=== PATIENT | male | born 1970 | race Caucasian/White ===

== ENCOUNTER 2019-07-14 06:40 | Observation (INO) | payer OTHER ==
[~2019-07-14] VITALS: Ht 177.8 cm; Wt 92.0 kg
[~2019-07-14 06:40] MED LIST: ACET325 PO; ALBU90OI INH; AMOCLA875 PO; ASPI325; ASPI325 PO; AZIT250 PO; Aspirin EC325 MG PO; CEFU500 PO; CEPH500 PO; CHEMO; CHOL10002 PO; CYCL10 PO; Cipro250 MG PO; Coumadin5 MG PO; DOC250 PO; ENOX100I SQ; FENT25TP TOP; FENT50TP TOP; GENT.3OPSO RIGHTEYE; HYDACE5 PO; HYDCHL25 PO; HYDMOR2 PO; HYDR1TAB94 PO; IBUP600 PO; IBUP800; IBUP800 PO; LISINOPRIL; METO10 PO; NAPR500 PO; NAPR550 PO; NICO14TP TOP; Norco 5-325 Ta1 EACH PO; ONDA8ODT MM; OXYACE5T PO; OXYC10ER PO; OXYC5 PO; PRED20 PO; PROACE100 PO; PROM25; PROM25 PO; Prednisone10 MG PO; RANI150 PO; RXONDA4ODT MM; RXOXYACE PO; RXPROACE PO; RXPROM25S PR; SENN187 PO; TRAM50 PO; VICODIN 5-3001 EACH PO; WARF5 PO; XARELTO10 MG PO; Zithromax250 MG PO; [UNRECOGNIZED DRUG - OTHER]
[2019-07-14] MEDS ORDERED: LISI5 PO (07:19)
[2019-07-14 08:41] LABS: BASOPHILS ABSOLUTE AUTO 0.07 K/mm3 (0.00-0.23); BASOPHILS PERCENT AUTO 1 % (0-2); EOSINOPHILS ABSOLUTE AUTO 0.27 K/mm3 (0.00-0.68); EOSINOPHILS PERCENT AUTO 3 % (0-6); Hematocrit 48.6 % (37.0-53.0); Hemoglobin 15.9 g/dL (13.5-17.5); IMMATURE GRAN ABSOLUTE AUTO 0.02 K/mm3 (0.00-0.10); IMMATURE GRAN PERCENT AUTO 0 % (0-1); LYMPHOCYTES ABSOLUTE AUTO 2.21 K/mm3 (0.84-5.20); LYMPHOCYTES PERCENT AUTO 28 % (21-46); MONOCYTES ABSOLUTE AUTO 0.78 K/mm3 (0.16-1.47); MONOCYTES PERCENT AUTO 10 % (4-13); Mean Corpuscular HGB 31.4 pg (26.0-34.0); Mean Corpuscular HGB Conc 32.7 g/dL (31.5-36.5); Mean Corpuscular Volume 96 fL (80-100); Mean Platelet Volume 9.6 fL (9.1-12.4); NEUTROPHILS ABSOLUTE AUTO 4.61 K/mm3 (1.96-9.15); NEUTROPHILS PERCENT AUTO 58 % (41-73); Platelet Count 130 K/mm3 (150-400); RDW Coefficient Variation 14.7 % (11.7-14.2); Red Blood Cell Count 5.06 M/mm3 (4.30-5.90); White Blood Cell Count 7.96 K/mm3 (4.00-11.30)
[2019-07-14 08:58] LABS: Albumin, Blood 3.2 g/dL (3.4-5.0); Albumin/Globulin Ratio 0.9 (0.8-1.8); Bilirubin, Total 0.4 mg/dL (0.1-1.0); Bun/Creatinine Ratio 13.1 (12.0-20.0); Calcium, Blood 8.6 mg/dL (8.5-10.1); Creatinine, Blood 1.37 mg/dL (0.60-1.20); Globulin, Blood 3.5 g/dL (2.2-4.0); Potassium, Blood 4.4 mmol/L (3.5-5.5); Total Protein, Blood 6.7 g/dL (6.4-8.2)
[2019-07-14 10:06] LABS: International Normalized Ratio 1.03; Prothrombin Time Results 10.9 Sec (9.7-11.5)
--- NOTE | 2019-07-14 16:51 | NUR ---
SHIFT SUMMARY 1040 RECEIVED PT TO RM 359 FROM ER. RECEIVED REPORT FROM KARAN VILLEGAS, PT TO ER WITH C/O SWELLING TO L ARM WHEN HE WOKE UP YESTERDAY. HX OF DVT'S AND PE'S WITH LAST RESULTING IN HEART FAILURE AND PACER PLACEMENT EARLIER THIS YEAR. PT REPORTED NO PCP AND DOES NOT FOLLOW UP HE SHOULD. PT ON LISINOPRIL AND XARELTO, BUT HAS MISSED A FEW DOSES RECENTLY. PT ADMITTED FOR HEPARIN DRIP. A&O, INDEPENDENT IN RM. MEDICATED FOR C/O PAIN TO L ARM X2 TODAY. CALL LT IN REACH. NO FURTHER NEEDS AT THIS TIME.
--- NOTE | 2019-07-15 01:04 | NUR ---
07/14/19 8746 PT WANTING TO GO OUTSIDE TO SMOKE. INFORMED THAT HE CANNOT DUE TO HIM BEING ON A HEPARIN DRIP IV. RN INFORMED PT THAT SHE WILL SPEAK WITH MD ABOUT ANTI-ANXIETY OR SLEEPER ORDER. HE WAS AGREEABLE TO THAT PLAN.
[2019-07-15 08:01] LABS: BASOPHILS ABSOLUTE AUTO 0.07 K/mm3 (0.00-0.23); BASOPHILS PERCENT AUTO 1 % (0-2); EOSINOPHILS ABSOLUTE AUTO 0.35 K/mm3 (0.00-0.68); EOSINOPHILS PERCENT AUTO 6 % (0-6); Hematocrit 49.6 % (37.0-53.0); Hemoglobin 16.2 g/dL (13.5-17.5); IMMATURE GRAN ABSOLUTE AUTO 0.02 K/mm3 (0.00-0.10); IMMATURE GRAN PERCENT AUTO 0 % (0-1); LYMPHOCYTES ABSOLUTE AUTO 2.47 K/mm3 (0.84-5.20); LYMPHOCYTES PERCENT AUTO 45 % (21-46); MONOCYTES ABSOLUTE AUTO 0.49 K/mm3 (0.16-1.47); MONOCYTES PERCENT AUTO 9 % (4-13); Mean Corpuscular HGB 31.4 pg (26.0-34.0); Mean Corpuscular HGB Conc 32.7 g/dL (31.5-36.5); Mean Corpuscular Volume 96 fL (80-100); Mean Platelet Volume 9.9 fL (9.1-12.4); NEUTROPHILS ABSOLUTE AUTO 2.09 K/mm3 (1.96-9.15); NEUTROPHILS PERCENT AUTO 38 % (41-73); Platelet Count 111 K/mm3 (150-400); RDW Standard Deviation 50.4 fL (35.1-46.3); Red Blood Cell Count 5.16 M/mm3 (4.30-5.90); White Blood Cell Count 5.49 K/mm3 (4.00-11.30)
[2019-07-15 08:30] LABS: Alanine Aminotransfer (ALT/SGP 33 U/L (12-78); Albumin, Blood 2.9 g/dL (3.4-5.0); Albumin/Globulin Ratio 0.9 (0.8-1.8); Alk Phos 94 U/L (50-136); Anion Gap 7 mmol/L (6-16); Aspartate Aminotrans (AST/SGOT 26 U/L (12-37); Bilirubin, Total 0.4 mg/dL (0.1-1.0); Blood Urea Nitrogen 19 mg/dL (8-24); Bun/Creatinine Ratio 14.6 (12.0-20.0); CHOL/HDL RATIO 3.9; CO2, Blood 26 mmol/L (21-32); Calcium, Blood 8.4 mg/dL (8.5-10.1); Chloride, Blood 106 mmol/L (98-108); Cholesterol 225 mg/dL (50-200); Globulin, Blood 3.4 g/dL (2.2-4.0); Glomerular Filtration Rate >60 (60-); Glucose, Blood 88 mg/dL (70-99); HDL Cholesterol 58 mg/dL (>39); LDL/HDL RATIO 2.3; Low Density Lipoprotein Chol 134 mg/dL (0-110); Magnesium, Blood 2.1 mg/dL (1.6-2.4); Potassium, Blood 4.5 mmol/L (3.5-5.5); Sodium, Blood 139 mmol/L (136-145); Total Protein, Blood 6.3 g/dL (6.4-8.2); Triglycerides 164 mg/dL (30-160); Very Low Density Lipoprot Chol 32 mg/dL (6-32)
--- NOTE | 2019-07-15 08:55 | NUR ---
PT SLEEPING WAKES TO VERBAL STIMULI MEDS GIVEN SCHED PT ASKED IF HE CAN BE UNHOOKED FROM HEPARIN DRIP FOR A SHOWER STATED NO BUT WE CAN COVER THE THE IV AND HE CAN SHOWER WITH THE IV PT L ARM STILL VERY SWOLLEN NO SOB NO CP ELEV ON PILLOW PT STATED HE WAS ABLE TO SLEEP WELL WITH THE MELATONIN
--- NOTE | 2019-07-15 09:34 | NUR ---
heparin dose to stay at same rate per pharmacy pt resting
--- NOTE | 2019-07-15 12:15 | NUR ---
dr guzman by to see pt po xarelto given 20 mg pharmacy stated in 1 hr we can stop the heparin pt stated his normal dose is 5 mg to prevent dvt pt stated when i unhook him he will have his shower
[2019-07-15 13:04] LABS: Free Thyroxine 0.88 ng/dL (0.70-1.60)
[2019-07-15 13:06] LABS: Triiodothyronine, Free 2.89 pg/mL (2.18-3.98)
--- NOTE | 2019-07-15 14:00 | NUR ---
pt getting into shower heparin gtt turned off at 1300 sl
--- NOTE | 2019-07-15 17:45 | NUR ---
PT EATING DINNER
--- NOTE | 2019-07-16 04:01 | NUR ---
07/16/19 0400 VITALS STABLE. MEDICATED FOR PAIN IN LEFT ARM EARLIER PER MAR. WATCHING TV AND STATES HE HAS BEEN SLEEPING "ON AND OFF". LEFT ARM UP ON PILLOW AND ENCOURAGED HIM TO GENTLY MOVE HANDS, FINGERS AND ARMS SPORADICALLY TO MAINTAIN STRENGTH AND ROM. PT AGREEABLE.
[2019-07-16] MEDS ORDERED: XARELTO15 MG PO (09:30)
[2019-07-16] MEDS ORDERED: NICO21TP TOP (09:31)
[2019-07-16] MEDS ORDERED: Lipitor20 MG PO (09:31)
[2019-07-16] MEDS ORDERED: TRAM50 PO (09:32)
--- NOTE | 2019-07-16 11:12 | NUR ---
SUMMARY/DISCHARGE PT BEING DISCHARGED TO HOME, PT'S PCP IS IN [place], PT REPORTS HE WILL MAKE A FOLLOW UP WHEN HE GETS HOME, PT VERBALIZD UNDERSTANDING REGARDING DISCHARGE MEDICATIONS, DOSE CHANGES, AND FOLLOW UP, PT DECLINED A WHEELCHAIR AND IS CURRENTLY WAITING FOR HIS RIDE
--- NOTE | 2019-07-16 13:28 | NUR ---
PT DISCHARGED, DECLINED A WHEELCHAIR, ABLE TO AMBULATE SAFELY TO THE ELEVATOR
== END 2019-07-16 13:15 | disposition home or self-care (01) ==
LOC: ER 06:40 → MEDS 06:41 → ER 09:59 → MEDS 10:40 → ER 07-15 06:41 → MEDS 07-15 06:41 → ENPENDDIS 07-16 09:38 → MEDS 07-16 13:15
PROVIDERS: Emergency Medicine; Family Medicine; ADMIT Internal Medicine
DX: I82.B12 Acute embolism and thrombosis of left subclavian vein (principal); I82.612 Acute embolism and thrombosis of superficial veins of left upper extremity; I82.A12 Acute embolism and thrombosis of left axillary vein; C85.90 Non-Hodgkin lymphoma, unspecified, unspecified site; I12.9 Hypertensive chronic kidney disease with stage 1 through stage 4 chronic kidney disease, or unspecified chronic kidney disease; N18.3 Chronic kidney disease, stage 3 (moderate); E78.5 Hyperlipidemia, unspecified; F17.210 Nicotine dependence, cigarettes, uncomplicated; Z86.711 Personal history of pulmonary embolism; Z86.718 Personal history of other venous thrombosis and embolism; Z79.01 Long term (current) use of anticoagulants; Z79.899 Other long term (current) drug therapy; Z90.49 Acquired absence of other specified parts of digestive tract; Z95.0 Presence of cardiac pacemaker
CPT/HCPCS: 36415; 71260; 80053; 80061; 83735; 84439; 84443; 84481; 85025; 85610; 85651; 85730; 93971; 96365; 96366; 96376; 99284-25; A9270; G0378; J1644; Q9967

== ENCOUNTER 2020-05-14 04:44 | Emergency (ER) | payer OTHER ==
[~2020-05-14] VITALS: Ht 177.8 cm; Wt 95.2 kg
[~2020-05-14 04:44] MED LIST changes: +LISI5 PO; +Lipitor20 MG PO; +NICO21TP TOP; +XARELTO15 MG PO
[2020-05-14] MEDS ORDERED: XARELTO20 MG PO ×2 (06:25→09:56)
[2020-05-14 06:55] LABS: BASOPHILS PERCENT AUTO 1 % (0-2); EOSINOPHILS ABSOLUTE AUTO 0.32 K/mm3 (0.00-0.68); EOSINOPHILS PERCENT AUTO 3 % (0-6); Hemoglobin 18.2 g/dL (13.5-17.5); IMMATURE GRAN ABSOLUTE AUTO 0.06 K/mm3 (0.00-0.10); IMMATURE GRAN PERCENT AUTO 1 % (0-1); LYMPHOCYTES ABSOLUTE AUTO 2.39 K/mm3 (0.84-5.20); LYMPHOCYTES PERCENT AUTO 19 % (21-46); MONOCYTES PERCENT AUTO 8 % (4-13); Mean Corpuscular HGB Conc 32.7 g/dL (31.5-36.5); Mean Corpuscular Volume 95 fL (80-100); Mean Platelet Volume 10.3 fL (9.1-12.4); NEUTROPHILS ABSOLUTE AUTO 8.82 K/mm3 (1.96-9.15); NEUTROPHILS PERCENT AUTO 70 % (41-73); Platelet Count 126 K/mm3 (150-400); RDW Coefficient Variation 13.9 % (11.7-14.2); RDW Standard Deviation 48.8 fL (35.1-46.3); Red Blood Cell Count 5.88 M/mm3 (4.30-5.90); White Blood Cell Count 12.69 K/mm3 (4.00-11.30)
[2020-05-14 06:57] LABS: Hematocrit 55.7 % (37.0-53.0)
[2020-05-14 07:00] LABS: Calcium, Ionized (POC) 1.28 mmol/L (1.10-1.46); Chloride (POC) 102 mmol/L (98-108); Creatinine (POC) 1.5 mg/dL (0.8-1.3); Glucose (ISTAT POC) 95 mg/dL (70-99); Hemoglobin (POC) 19.4 g/dL (13.5-17.5); Potassium (POC) 4.9 mmol/L (3.5-5.5); Sodium (POC) 140 mmol/L (135-148); Total CO2 (POC) 27 mmol/L (21-32)
[2020-05-14 07:16] LABS: Albumin, Blood 3.3 g/dL (3.4-5.0); Albumin/Globulin Ratio 0.9 (0.8-1.8); Bilirubin, Total 0.3 mg/dL (0.1-1.0); Bun/Creatinine Ratio 17.4 (12.0-20.0); Calcium, Blood 9.2 mg/dL (8.5-10.1); Creatinine, Blood 1.38 mg/dL (0.60-1.20); Globulin, Blood 3.8 g/dL (2.2-4.0); Potassium, Blood 5.1 mmol/L (3.5-5.5); Total Protein, Blood 7.1 g/dL (6.4-8.2); Troponin I 0.027 ng/mL (0.000-0.040)
[2020-05-14 07:56] LABS: International Normalized Ratio 0.96; Prothrombin Time Results 10.3 Sec (9.7-11.5)
[2020-05-14] MEDS ORDERED: HYDR1TAB94 PO (10:00)
== END 2020-05-14 10:40 | disposition home or self-care (01) ==
LOC: ER 04:44
PROVIDERS: Emergency Medicine
DX: I82.402 Acute embolism and thrombosis of unspecified deep veins of left lower extremity (principal); I26.99 Other pulmonary embolism without acute cor pulmonale; D68.59 Other primary thrombophilia; N18.9 Chronic kidney disease, unspecified; F17.210 Nicotine dependence, cigarettes, uncomplicated; Z79.01 Long term (current) use of anticoagulants; Z79.899 Other long term (current) drug therapy; Z87.442 Personal history of urinary calculi; Z95.0 Presence of cardiac pacemaker
CPT/HCPCS: 36415; 71260; 80047; 80053; 84484; 85014; 85025; 85610; 85730; 93005; 93010; 93971; 96361; 96365; 96366; 96375; 99284-25; J1170; J1644; J2405; J7030; Q9967

== ENCOUNTER 2020-05-16 22:13 | Emergency (ER) | payer OTHER ==
[~2020-05-16] VITALS: Ht 177.8 cm; Wt 95.2 kg
[~2020-05-16 22:13] MED LIST changes: +XARELTO20 MG PO
[2020-05-17] MEDS ORDERED: Norco 5-325 Ta1 EACH PO (01:51)
== END 2020-05-17 02:05 | disposition home or self-care (01) ==
LOC: ER 22:13
DX: I82.401 Acute embolism and thrombosis of unspecified deep veins of right lower extremity (principal); I10 Essential (primary) hypertension; F17.210 Nicotine dependence, cigarettes, uncomplicated; Z87.442 Personal history of urinary calculi; Z95.0 Presence of cardiac pacemaker; Z79.01 Long term (current) use of anticoagulants; Z79.899 Other long term (current) drug therapy
CPT/HCPCS: 36415; 96374; 96375; 99283; J2270

== ENCOUNTER 2020-11-02 09:54 | Inpatient (IN) | payer OTHER ==
[~2020-11-02] VITALS: Ht 180.3 cm; Wt 91.5 kg
[2020-11-02 10:21] LABS: BASOPHILS ABSOLUTE AUTO 0.05 K/mm3 (0.00-0.23); BASOPHILS PERCENT AUTO 1 % (0-2); EOSINOPHILS PERCENT AUTO 1 % (0-6); Hematocrit 48.8 % (37.0-53.0); Hemoglobin 16.1 g/dL (13.5-17.5); IMMATURE GRAN ABSOLUTE AUTO 0.03 K/mm3 (0.00-0.10); IMMATURE GRAN PERCENT AUTO 0 % (0-1); LYMPHOCYTES ABSOLUTE AUTO 2.09 K/mm3 (0.84-5.20); LYMPHOCYTES PERCENT AUTO 21 % (21-46); MONOCYTES ABSOLUTE AUTO 1.02 K/mm3 (0.16-1.47); MONOCYTES PERCENT AUTO 10 % (4-13); Mean Corpuscular HGB 30.9 pg (26.0-34.0); Mean Corpuscular Volume 94 fL (80-100); Mean Platelet Volume 10.7 fL (9.1-12.4); NEUTROPHILS ABSOLUTE AUTO 6.53 K/mm3 (1.96-9.15); NEUTROPHILS PERCENT AUTO 67 % (41-73); Platelet Count 151 K/mm3 (150-400); RDW Standard Deviation 47.9 fL (35.1-46.3); Red Blood Cell Count 5.21 M/mm3 (4.30-5.90); White Blood Cell Count 9.82 K/mm3 (4.00-11.30)
[2020-11-02 10:45] LABS: Albumin, Blood 3.3 g/dL (3.4-5.0); Albumin/Globulin Ratio 0.9 (0.8-1.8); Bilirubin, Total 0.9 mg/dL (0.1-1.0); Bun/Creatinine Ratio 18.2 (12.0-20.0); Calcium, Blood 8.7 mg/dL (8.5-10.1); Creatinine, Blood 1.65 mg/dL (0.60-1.20); Globulin, Blood 3.5 g/dL (2.2-4.0); Potassium, Blood 4.7 mmol/L (3.5-5.5); Total Protein, Blood 6.8 g/dL (6.4-8.2)
[2020-11-02 12:03] LABS: U Amphetamine Screen DETECTED; U Barbituate Screen Not Detected; U Benzodiazapine Screen Not Detected; U Buprenorphine Screen Not Detected; U Cannabinoids Screen DETECTED; U Cocaine Screen Not Detected; U Methadone Screen Not Detected; U Methamphetamine Screen DETECTED; U Opiates Screen DETECTED; U Oxycodone Screen Not Detected; U Phencyclidine Screen Not Detected; U Propoxyphene Screen Not Detected
--- NOTE | 2020-11-02 14:52 | NUR ---
PT ADMITTED TO ICU AT 1405 FROM ER FOR ACUTE CHF. PT AWAKE AND ALERT, DENIES C/O PAIN, STATES HE CAME IN FOR SOB BUT THAT IS IMPROVED NOW. LUNGS CLEAR T/O, DIMINISHED TO LLL, SATS >90% ON RA. PT REQUEST SANDWHICH AT LEAST 10 TIMES IN 5MIN PERIOD. PT PLEASANT, COOPERATIVE, RESTLESS, HYPERACTIVE, TWITCHING, WITH PRESSURED SPEECH. APPEARS TO POSSIBLY BE UNDER THE INFLUENCE OF ILLEGAL SUBSTANCE. UA + FOR METH/AMP/OPIATES/CAN. VSS. PT POINTS OUT SWELLING TO RIGHT UPPER INNER THIGHT. AREA SWOLLEN, HARD, RED, AND WARM. DAT DIXONAC OPERATOR NOTIFIED. WARM COMPRESS AND TYLENOL ORDERED. PT HAS HX OF BLOOD CLOTS AND HAS BEEN PLACED ON BLOOD THINNERS. PT GIVEN LUNCH TRAY, ATE 100%.
--- NOTE | 2020-11-02 15:41 | NUR ---
HISTORY COMPLETED; SOMEWHAT DIFFICULT D/T PT BEING UNDER THE INFLUENCE. PT VERY HUNGRY; ADDITIONAL SNACKS GIVEN. GOOD URINE OUTPUT WITH LASIX.
--- NOTE | 2020-11-02 18:08 | NUR ---
DR MURPHY CALLED AND GIVEN UPDATE. TRAMADOL AND NICOTINE PATCH ORDERED.
--- NOTE | 2020-11-02 21:00 | NUR ---
Care Assumed 1900 Pt resting in bed, on phone or watching TV. A/O X 4, able to make needs known. Pleasant, cooperative, and hyperactive when nurse in room but easily falls asleep when left alone. Asked for food frequently, snacked provided. Pt on RA when care assumed and 1 L via NC started due to pts SPO2 decreasing to 87% when sleeping. Lung clear t/o. Warm compress applied to right inner thigh, area is swollen, hard, red, and warm to touch. Pt states having stabbing burning pain (4/10 on/off) that started one week ago. Pt states using rice warm compresses at home to help manage the pain. Also, states having cramping/tightness on/off on right lower chest that started today morning. Pt states pain is worse with stretching and does not radiate. VSS. Paced. Call light within reach. Around 1999 patient friend called asking for her belongins stored in patients vehicle. Discussed with patient and situation resolved with assitance from secruity. Secruity has patients friends belongs and patient made aware of this and told to let his friend know where belongings can be collected.
--- NOTE | 2020-11-03 02:15 | NUR ---
Pain Patient given pain medications per emar for right thigh pain (02/06). Patient states he accidentally scratched the area.
[2020-11-03 03:28] LABS: BASOPHILS ABSOLUTE AUTO 0.05 K/mm3 (0.00-0.23); BASOPHILS PERCENT AUTO 1 % (0-2); EOSINOPHILS ABSOLUTE AUTO 0.25 K/mm3 (0.00-0.68); EOSINOPHILS PERCENT AUTO 3 % (0-6); Hematocrit 49.8 % (37.0-53.0); Hemoglobin 16.7 g/dL (13.5-17.5); IMMATURE GRAN ABSOLUTE AUTO 0.02 K/mm3 (0.00-0.10); IMMATURE GRAN PERCENT AUTO 0 % (0-1); LYMPHOCYTES ABSOLUTE AUTO 2.21 K/mm3 (0.84-5.20); LYMPHOCYTES PERCENT AUTO 29 % (21-46); MONOCYTES ABSOLUTE AUTO 0.85 K/mm3 (0.16-1.47); MONOCYTES PERCENT AUTO 11 % (4-13); Mean Corpuscular HGB 31.1 pg (26.0-34.0); Mean Corpuscular HGB Conc 33.5 g/dL (31.5-36.5); Mean Corpuscular Volume 93 fL (80-100); Mean Platelet Volume 10.8 fL (9.1-12.4); NEUTROPHILS ABSOLUTE AUTO 4.26 K/mm3 (1.96-9.15); NEUTROPHILS PERCENT AUTO 56 % (41-73); Platelet Count 152 K/mm3 (150-400); RDW Standard Deviation 47.5 fL (35.1-46.3); Red Blood Cell Count 5.37 M/mm3 (4.30-5.90); White Blood Cell Count 7.64 K/mm3 (4.00-11.30)
[2020-11-03 03:52] LABS: Albumin, Blood 3.1 g/dL (3.4-5.0); Albumin/Globulin Ratio 0.9 (0.8-1.8); Bilirubin, Total 0.6 mg/dL (0.1-1.0); Bun/Creatinine Ratio 17.5 (12.0-20.0); Calcium, Blood 8.7 mg/dL (8.5-10.1); Creatinine, Blood 1.66 mg/dL (0.60-1.20); Globulin, Blood 3.5 g/dL (2.2-4.0); Potassium, Blood 4.3 mmol/L (3.5-5.5); Total Protein, Blood 6.6 g/dL (6.4-8.2)
--- NOTE | 2020-11-03 05:36 | NUR ---
Shift Summary Pt resting t/o shift. Pain in right thigh has decreased to 1/10. Area continues to be red, hard, and warm to touch. Denies CP. Pt on 4 L via NC, to keep SPO2 > 90%. Oxygen required when pt sleeping. Able to ambulate to bedside toilet without assistance, pt tolerated well. VSS. Continues to be paced. Will report to oncoming shift.
--- NOTE | 2020-11-03 07:51 | NUR ---
PT AWAKE AND ALERT EATING BREAKFAST. PT C/O PAIN 6/10 TO RIGHT UPPER/INNER THIGH. AREA RED, SWOLLEN, HARD, WARM. VEINS ARE DILATED, HARD, AND TENDER IN THE AREA. WILL MEDICATE W ULTRAM. HEATING PAD AT BEDSIDE FOR USE. LUNGS CLEAR, DENIES SOB, SATS 96% ON RA. PT DENIES C/O CHEST PAIN/PRESSURE. PLAN; POSSIBLE CHANGE IN STATUS.
--- NOTE | 2020-11-03 08:11 | NUR ---
DR GARCIA IN TO SEE PT. PT NOW MED STATUS W TELE
--- NOTE | 2020-11-03 14:46 | NUR ---
PT CHECKED ON BECAUSE BED ALARM ALARMING, PT IN BED. WHEN ASKED IF PT DOING OKAY PT STATED "IM HAVING CHEST PAIN". PT C/O VAUGE CHEST DISCOFORT 02/06, MOVES HAND AROUND EPIGASTRIC TO MID LEFT CHEST AREA. PT STATES THE PAIN IS ACHE/PRESSURE/CRAMPING. WHEN ASKED IF IT'S WORSE WITH A DEEP BREATH, PT STATES A LITTLE. WHEN ASKED IF THE PAIN IS SHARP PT STATES A LITTLE. PT DENIES SOB, NAUSEA. VSS STABLE. PT'S COLOR IS PINK, PT IS NOT DIAPHORETIC. EKG COMPLETED; SHOWS PACED RHTHYM W PROLONGED AV CONDUCTION. DR SYED NOTIFIED. STAT TROPONIN ORDERED.
--- NOTE | 2020-11-03 16:21 | NUR ---
PT SLEEPING, APPEARS RESTFUL. TROPONIN WNL AT 0.031
--- NOTE | 2020-11-03 16:29 | NUR ---
PT SOUND ASLEEP; PT AWOKE W LIGHT SHAKE; STARTLED. ULTRAM GIVEN FOR THIGH AND CHEST DISCOMFORT.
--- NOTE | 2020-11-03 18:12 | NUR ---
PT DENIES COMPLAINTS, EATING DINNER AND VISITING WITH FRIEND.
--- NOTE | 2020-11-03 19:30 | NUR ---
ASSUMED CARE OF PT, BEDSIDE REPORT RECEIVED. PT IS RESTING QUIETLY RECLINING IN BED AND DENIES NEEDS AT THIS TIME. STATES THAT HE HAS LIFE CHANGES PLANNED HE WISHES TO BE ABLE TO CONTINUE TO CARE FOR HIS ELDERLY MOTHER. PT IS ENCOURAGED TO MAKE POSITIVE CHANGES.
--- NOTE | 2020-11-04 01:40 | NUR ---
TRANSFER PT ICU TRANSFER THIS SHIFT. REPORT TAKEN FROM BEAM BUILDER TO ASSUME CARE OF PT AT THIS TIME. PT TRANSFERRED TO ROM 309. PT RESTING IN BED, NO FRESH COMPLAINTS. REQUESTS GRAPE JUICE BUT DENIES OTHER NEEDS. BELONGINGS IN PLACE. CALL LIGHT WITHIN REACH.
--- NOTE | 2020-11-04 04:16 | NUR ---
SHIFT SUMMARY PT ICU TRANSFER THIS MORINING AROUND 0120. HE HAS RESTED COMFORTABLY SINCE TRANSFER AND HAS DENIED NEEDS. MOSTLY INDEPENDENT, NEEDING MINIMAL ASSISTANCE. VITALS ARE STABLE. POSSIBLE DC TODAY. BED IN LOWEST POSITION, CALL LIGHT WITHIN REACH.
[2020-11-04 05:31] LABS: Bun/Creatinine Ratio 21.9 (12.0-20.0); Calcium, Blood 8.8 mg/dL (8.5-10.1); Creatinine, Blood 1.46 mg/dL (0.60-1.20); Potassium, Blood 4.3 mmol/L (3.5-5.5)
[2020-11-04] MEDS ORDERED: ASPI81CH PO (10:26)
[2020-11-04] MEDS ORDERED: Lisinopril2.5 MG PO (10:27)
[2020-11-04] MEDS ORDERED: Nicoderm Cq1 EAC1 TOP (10:27)
[2020-11-04] MEDS ORDERED: FURO40 PO (10:27)
[2020-11-04] MEDS ORDERED: METO25ER PO (10:27)
--- NOTE | 2020-11-04 12:15 | NUR ---
DISCHARGE SUMMARY PT AxOx4. COOPERATIVE WITH CARE. PT VERY SLEEPY THIS AM. DISCHARGING TO HOME WITH FAMILY. PT DENIES PAIN. VITALS REVIEWED. DISCHARGE INSTRUCTIONS DISCUSSED WITH PATIENT INCLUDING DC MEDICATIONS, AND FOLLOW UP APPTS- CARDIO CONSULT AND ESTABLISHING CARE WITH NEW PCP. PT VERBALIZES UNDERSTANDING. DENIES ANY FURTHER QUESTIONS AT THIS TIME. PT HAD RIDE WAITING IN PARKING LOT. ESCORTED SAFELY OUT VIA WC BY HAIRPIECE STYLIST.
== END 2020-11-04 12:24 | disposition home or self-care (01) | DRG 291 ==
LOC: ER 09:54 → ICUW 12:42 → ICUE 12:42 → MEDS 11-04 01:11
PROVIDERS: Emergency Medicine; Internal Medicine; Nurse Practitioner Acute Care; ADMIT Internal Medicine
DX: I13.0 Hypertensive heart and chronic kidney disease with heart failure and stage 1 through stage 4 chronic kidney disease, or unspecified chronic kidney disease (principal); I50.23 Acute on chronic systolic (congestive) heart failure; C85.90 Non-Hodgkin lymphoma, unspecified, unspecified site; I42.8 Other cardiomyopathies; N18.30 Chronic kidney disease, stage 3 unspecified; F17.210 Nicotine dependence, cigarettes, uncomplicated; F19.10 Other psychoactive substance abuse, uncomplicated; Z86.718 Personal history of other venous thrombosis and embolism; Z91.14 Patient's other noncompliance with medication regimen
CPT/HCPCS: 36415; 71045; 71260; 80048; 80053; 83735; 83880; 84484; 85025; 93005; 93010; 93306; 96374; 99285-25; A9270; J1940; Q9967

== ENCOUNTER 2020-12-17 13:37 | Emergency (ER) | payer OTHER ==
[~2020-12-17] VITALS: Ht 177.8 cm; Wt 95.2 kg
[~2020-12-17 13:37] MED LIST changes: +ASPI81CH PO; +FURO40 PO; +Lisinopril2.5 MG PO; +METO25ER PO; +Nicoderm Cq1 EAC1 TOP
[2020-12-17] MEDS ORDERED: XARELTO20 MG PO (14:36)
== END 2020-12-17 14:55 | disposition home or self-care (01) ==
LOC: ER 13:37
DX: I82.432 Acute embolism and thrombosis of left popliteal vein (principal); I82.442 Acute embolism and thrombosis of left tibial vein; I11.0 Hypertensive heart disease with heart failure; I50.9 Heart failure, unspecified; F17.210 Nicotine dependence, cigarettes, uncomplicated; Z79.01 Long term (current) use of anticoagulants; Z79.82 Long term (current) use of aspirin; Z79.899 Other long term (current) drug therapy
CPT/HCPCS: 93971; 99283-25; A9270

== ENCOUNTER 2021-11-14 00:27 | Emergency (ER) | payer OTHER ==
[~2021-11-14] VITALS: Ht 177.8 cm; Wt 97.5 kg
== END 2021-11-14 01:09 | disposition home or self-care (01) ==
LOC: ER 00:27
DX: Z48.02 Encounter for removal of sutures (principal); F17.210 Nicotine dependence, cigarettes, uncomplicated; I13.0 Hypertensive heart and chronic kidney disease with heart failure and stage 1 through stage 4 chronic kidney disease, or unspecified chronic kidney disease; N18.9 Chronic kidney disease, unspecified; I50.9 Heart failure, unspecified; Z79.899 Other long term (current) drug therapy
CPT/HCPCS: 99281

== ENCOUNTER → 2022-01-25 | Outpatient (CLI) | payer OTHER ==
[2022-01-25 12:42] LABS: BASOPHILS ABSOLUTE AUTO 0.06 K/mm3 (0.00-0.23); BASOPHILS PERCENT AUTO 1 % (0-2); EOSINOPHILS ABSOLUTE AUTO 0.22 K/mm3 (0.00-0.68); EOSINOPHILS PERCENT AUTO 3 % (0-6); Hematocrit 49.5 % (37.0-53.0); IMMATURE GRAN ABSOLUTE AUTO 0.03 K/mm3 (0.00-0.10); IMMATURE GRAN PERCENT AUTO 0 % (0-1); LYMPHOCYTES ABSOLUTE AUTO 1.79 K/mm3 (0.84-5.20); LYMPHOCYTES PERCENT AUTO 22 % (21-46); MONOCYTES ABSOLUTE AUTO 0.76 K/mm3 (0.16-1.47); MONOCYTES PERCENT AUTO 9 % (4-13); Mean Corpuscular HGB 32.8 pg (26.0-34.0); Mean Corpuscular HGB Conc 34.3 g/dL (31.5-36.5); Mean Corpuscular Volume 95 fL (80-100); Mean Platelet Volume 10.2 fL (9.1-12.4); NEUTROPHILS ABSOLUTE AUTO 5.47 K/mm3 (1.96-9.15); NEUTROPHILS PERCENT AUTO 66 % (41-73); Platelet Count 159 K/mm3 (150-400); RDW Standard Deviation 49.3 fL (35.1-46.3); Red Blood Cell Count 5.19 M/mm3 (4.30-5.90); White Blood Cell Count 8.33 K/mm3 (4.00-11.30)
[2022-01-25 12:48] LABS: Bun/Creatinine Ratio 14.5 (12.0-20.0); Calcium, Blood 8.4 mg/dL (8.5-10.1); Creatinine, Blood 2.07 mg/dL (0.60-1.20); Potassium, Blood 4.9 mmol/L (3.5-5.5)
== END | disposition home or self-care (01) ==
LOC: LAB SHORT 12:38
PROVIDERS: Family Medicine
DX: L03.119 Cellulitis of unspecified part of limb (principal)
CPT/HCPCS: 80048; 85025

== ENCOUNTER → 2022-01-28 | Outpatient (CLI) | payer OTHER ==
[2022-01-28 14:33] LABS: BASOPHILS ABSOLUTE AUTO 0.06 K/mm3 (0.00-0.23); BASOPHILS PERCENT AUTO 1 % (0-2); EOSINOPHILS ABSOLUTE AUTO 0.16 K/mm3 (0.00-0.68); EOSINOPHILS PERCENT AUTO 2 % (0-6); Hemoglobin 17.9 g/dL (13.5-17.5); IMMATURE GRAN ABSOLUTE AUTO 0.03 K/mm3 (0.00-0.10); IMMATURE GRAN PERCENT AUTO 0 % (0-1); LYMPHOCYTES ABSOLUTE AUTO 2.21 K/mm3 (0.84-5.20); LYMPHOCYTES PERCENT AUTO 33 % (21-46); MONOCYTES ABSOLUTE AUTO 0.53 K/mm3 (0.16-1.47); MONOCYTES PERCENT AUTO 8 % (4-13); Mean Corpuscular HGB 31.7 pg (26.0-34.0); Mean Corpuscular HGB Conc 33.8 g/dL (31.5-36.5); Mean Corpuscular Volume 94 fL (80-100); Mean Platelet Volume 10.5 fL (9.1-12.4); NEUTROPHILS ABSOLUTE AUTO 3.69 K/mm3 (1.96-9.15); NEUTROPHILS PERCENT AUTO 55 % (41-73); Platelet Count 178 K/mm3 (150-400); RDW Coefficient Variation 13.9 % (11.7-14.2); RDW Standard Deviation 48.5 fL (35.1-46.3); Red Blood Cell Count 5.64 M/mm3 (4.30-5.90); White Blood Cell Count 6.68 K/mm3 (4.00-11.30)
[2022-01-28 14:43] LABS: Albumin, Blood 3.8 g/dL (3.4-5.0); Albumin/Globulin Ratio 0.9 (0.8-1.8); Bilirubin, Total 0.3 mg/dL (0.1-1.0); Bun/Creatinine Ratio 13.7 (12.0-20.0); Calcium, Blood 9.2 mg/dL (8.5-10.1); Creatinine, Blood 1.82 mg/dL (0.60-1.20); Globulin, Blood 4.1 g/dL (2.2-4.0); Potassium, Blood 4.6 mmol/L (3.5-5.5); Total Protein, Blood 7.9 g/dL (6.4-8.2)
== END | disposition home or self-care (01) ==
LOC: LAB SHORT 14:27 → LAB 14:27
PROVIDERS: Chiropractor
DX: R07.9 Chest pain, unspecified (principal); R60.0 Localized edema
CPT/HCPCS: 80053; 83880; 84484; 85025

== ENCOUNTER 2022-02-17 08:49 | Inpatient (IN) | payer OTHER ==
[~2022-02-17] VITALS: Ht 177.8 cm; Wt 99.0 kg
[2022-02-17 09:23] LABS: BASOPHILS ABSOLUTE AUTO 0.06 K/mm3 (0.00-0.23); BASOPHILS PERCENT AUTO 0 % (0-2); EOSINOPHILS ABSOLUTE AUTO 0.04 K/mm3 (0.00-0.68); EOSINOPHILS PERCENT AUTO 0 % (0-6); Hematocrit 52.5 % (37.0-53.0); Hemoglobin 17.2 g/dL (13.5-17.5); IMMATURE GRAN ABSOLUTE AUTO 0.07 K/mm3 (0.00-0.10); IMMATURE GRAN PERCENT AUTO 1 % (0-1); LYMPHOCYTES ABSOLUTE AUTO 1.48 K/mm3 (0.84-5.20); LYMPHOCYTES PERCENT AUTO 11 % (21-46); MONOCYTES ABSOLUTE AUTO 0.65 K/mm3 (0.16-1.47); MONOCYTES PERCENT AUTO 5 % (4-13); Mean Corpuscular HGB 31.4 pg (26.0-34.0); Mean Corpuscular HGB Conc 32.8 g/dL (31.5-36.5); Mean Corpuscular Volume 96 fL (80-100); Mean Platelet Volume 10.2 fL (9.1-12.4); NEUTROPHILS ABSOLUTE AUTO 11.36 K/mm3 (1.96-9.15); NEUTROPHILS PERCENT AUTO 83 % (41-73); Platelet Count 182 K/mm3 (150-400); RDW Coefficient Variation 14.5 % (11.7-14.2); RDW Standard Deviation 51.2 fL (35.1-46.3); Red Blood Cell Count 5.48 M/mm3 (4.30-5.90); White Blood Cell Count 13.66 K/mm3 (4.00-11.30)
[2022-02-17 09:54] LABS: Albumin, Blood 3.6 g/dL (3.4-5.0); Albumin/Globulin Ratio 0.9 (0.8-1.8); Bilirubin, Total 0.4 mg/dL (0.1-1.0); Bun/Creatinine Ratio 7.3 (12.0-20.0); Calcium, Blood 9.4 mg/dL (8.5-10.1); Creatinine, Blood 4.52 mg/dL (0.60-1.20); Globulin, Blood 3.8 g/dL (2.2-4.0); Potassium, Blood 4.6 mmol/L (3.5-5.5); Total Protein, Blood 7.4 g/dL (6.4-8.2)
[2022-02-17] MEDS ORDERED: HYDR1TAB94 PO (13:26)
[2022-02-17 14:04] LABS: Source, Urine Voided
[2022-02-17 14:12] LABS: Appearance, Urine Clear (Clear); Bilirubin, Urine Neg (Neg); Blood, Urine 3+ (Neg); Color, Urine Yellow (P-Yellow); Glucose Qualitative, Urine Neg (Neg); Ketones, Urine Neg (Neg); Leukocyte Esterase, Urine Neg (Neg); Nitrite, Urine Neg (Neg); Protein, Urine 2+ (Neg); Specific Gravity, Urine 1.025 (1.003-1.022); Urobilinogen, Urine NORM (Normal)
[2022-02-17 14:25] LABS: Bacteria Mod /hpf; Red Blood Cells, Urine 0-2 /hpf (0-2); Squamous Epithelial Cells Rare /hpf (Few)
[2022-02-17 14:26] LABS: Amorphous Light (0-Heavy); Mucus Light (0-Heavy)
[2022-02-17 14:28] LABS: Other Crystals Rare /hpf
[2022-02-17 14:41] LABS: Bun/Creatinine Ratio 9.8 (12.0-20.0); Calcium, Blood 8.7 mg/dL (8.5-10.1); Creatinine, Blood 3.98 mg/dL (0.60-1.20); Potassium, Blood 4.9 mmol/L (3.5-5.5)
[2022-02-17] MEDS ORDERED: PANT20 PO (18:08)
--- NOTE | 2022-02-17 18:51 | NUR ---
PT ARRIVED TO ROOM 305 VIA W/C FROM ED. FEET NOTICED TO BE DUSKY AND PT STATED "MY HEART IS ONLY WORKING AT 20%". HAS BEEN TO RESTROOM SEVERAL TIMES WITH DIARRHEA REPORTED. SPOKE WITH MD AND RECEIVED NEW ORDERS. ATE SUPPER WITH NO PROBLEM. WILL REPORT CONDITION TO ONCOMING SHIFT.
[2022-02-18 04:34] LABS: Adenovirus F 40/41 Not Detected (NOT DETECT); Astrovirus Not Detected (NOT DETECT); Campylobacter Sp Not Detected (NOT DETECT); Cryptosporidium Not Detected (NOT DETECT); Cyclospora Cayetanensis Not Detected (NOT DETECT); E. Coli O157 Not Detected (NOT DETECT); Entamoeba Histolytica Not Detected (NOT DETECT); Enteroaggregative E. coli-EAEC Not Detected (NOT DETECT); Enteropathogenic E. coli-EPEC Detected (NOT DETECT); Enterotoxigenic E. coli-ETEC Not Detected (NOT DETECT); Giardia Lamblia Not Detected (NOT DETECT); Norovirus GI/GII Not Detected (NOT DETECT); Plesiomonas Shigelloides Not Detected (NOT DETECT); Rotavirus A Not Detected (NOT DETECT); Salmonella Sp Not Detected (NOT DETECT); Sapovirus Not Detected (NOT DETECT); Shiga Toxin-prod E. coli-STEC Not Detected (NOT DETECT); Shigella/Enteroin E. coli-EIEC Not Detected (NOT DETECT); Vibrio Cholerae Not Detected (NOT DETECT); Vibrio Sp Not Detected (NOT DETECT); Yersinia Enterocolitica Not Detected (NOT DETECT)
--- NOTE | 2022-02-18 04:36 | NUR ---
A&OX4. V/S WNL. INDEPENDANT. IV TO L) AC; NS INFUSING AT 125 ML/HR ORDERED. REGULAR DIET. GOOD APETITE. DIARRHEA X3. PRN IMMODIUM X2 FOR DIARRHEA. NO N/V. PRN TYLENOLX1 & TRAMADOLX1 GIVEN FOR ABDOMINAL PAIN. PRN BENTYL GIVEN FOR ABDOMINAL CRAMPING. VOIDED W/O DIFFICULTY. ON CONTACT PRECAUTIONS FOR POSSIBLE C-DIFF. GI PANEL COLLECTED AND SENT TO LAB. WILL CONTINUE TO MONITOR.
[2022-02-18 04:54] LABS: Hematocrit 45.5 % (37.0-53.0); Hemoglobin 15.2 g/dL (13.5-17.5); Mean Corpuscular HGB 31.9 pg (26.0-34.0); Mean Corpuscular HGB Conc 33.4 g/dL (31.5-36.5); Mean Corpuscular Volume 96 fL (80-100); Mean Platelet Volume 10.2 fL (9.1-12.4); Platelet Count 132 K/mm3 (150-400); RDW Coefficient Variation 14.3 % (11.7-14.2); RDW Standard Deviation 50.1 fL (35.1-46.3); Red Blood Cell Count 4.76 M/mm3 (4.30-5.90); White Blood Cell Count 8.77 K/mm3 (4.00-11.30)
[2022-02-18 05:25] LABS: Bun/Creatinine Ratio 14.9 (12.0-20.0); Calcium, Blood 8.3 mg/dL (8.5-10.1); Creatinine, Blood 2.49 mg/dL (0.60-1.20); Potassium, Blood 4.5 mmol/L (3.5-5.5)
--- NOTE | 2022-02-18 08:00 | NUR ---
pt very sleepy this am, a/ox3, cooperative with care, follows commands well, denies pain, states he's doing ok, lungs are clear t/o, resp even and unlabored, no cough noted, hrr, has pacer, no edeam noted, ppp+1, cap refill<3sec, vs stable, afebrile, iv site is clear and patent, btx4, abd flat soft nontender, voids without diff, skin c/w/d, mashira, eliot, call light in reach.
--- NOTE | 2022-02-18 18:00 | NUR ---
Pt has slept all day, wakes easily, no acute changes this shift, no complaints or needs, call light in reach.
--- NOTE | 2022-02-19 04:21 | NUR ---
A&OX4. V/S WNL. NO N/V. GOOD APETTITE. INDEPENDANT. IV TO L) AC. PRN TYLENOL & TRAMADOL GIVEN FOR SHOULDER PAIN. VOIDED W/O DIFFICULTY. NO BM THIS SHIFT. WILL CONTINUE TO MONITOR.
[2022-02-19 06:05] LABS: Bun/Creatinine Ratio 17.2 (12.0-20.0); Creatinine, Blood 1.51 mg/dL (0.60-1.20)
[2022-02-19] MEDS ORDERED: Acetaminophen650 M1 PO (07:59)
[2022-02-19] MEDS ORDERED: CIPR250 PO (08:00)
--- NOTE | 2022-02-19 08:00 | NUR ---
pt woke for breakfast reports he is feeling a lot better, and is ready to go home today, up indep in room, was reported last night he was up most of the night, but not the loose stools like he had the night before, call light in reach.
[2022-02-19] MEDS ORDERED: LACT PO (08:01)
--- NOTE | 2022-02-19 12:20 | NUR ---
Pt has been discharged to home, went over instructios with him, he verbalized understanding, iv removed intact, will go home after lunch. call light in reach.
--- NOTE | 2022-02-19 13:00 | NUR ---
pt has been discharged, he left with out telling staff he was ready, took all belongings.
== END 2022-02-19 13:00 | disposition home or self-care (01) | DRG 683 ==
LOC: ER 08:49 → MEDS 16:53
PROVIDERS: Emergency Medicine; Internal Medicine; Nurse Practitioner Acute Care; ADMIT Internal Medicine
DX: N17.9 Acute kidney failure, unspecified (principal); A04.9 Bacterial intestinal infection, unspecified; I50.22 Chronic systolic (congestive) heart failure; Z66 Do not resuscitate; D72.829 Elevated white blood cell count, unspecified; E78.5 Hyperlipidemia, unspecified; B96.20 Unspecified Escherichia coli [E. coli] as the cause of diseases classified elsewhere; E86.0 Dehydration; I11.0 Hypertensive heart disease with heart failure; F11.10 Opioid abuse, uncomplicated; I27.20 Pulmonary hypertension, unspecified; N18.30 Chronic kidney disease, stage 3 unspecified; I50.9 Heart failure, unspecified; F15.10 Other stimulant abuse, uncomplicated; E87.5 Hyperkalemia; Z85.72 Personal history of non-Hodgkin lymphomas; Z86.711 Personal history of pulmonary embolism; Z86.718 Personal history of other venous thrombosis and embolism; Z79.01 Long term (current) use of anticoagulants; Z91.19 Patient's noncompliance with other medical treatment and regimen; Z90.49 Acquired absence of other specified parts of digestive tract; Z95.0 Presence of cardiac pacemaker; Z79.82 Long term (current) use of aspirin; Z79.899 Other long term (current) drug therapy
CPT/HCPCS: 36415; 71045; 74176; 80048; 80053; 81001; 82550; 83690; 83880; 85025; 85027; 87086; 87507; 94760; 96374; 99285-25; A9270; J2405; J7030

== ENCOUNTER 2022-11-22 17:39 | Emergency (ER) | payer OTHER ==
[~2022-11-22] VITALS: Ht 177.8 cm; Wt 99.8 kg
[~2022-11-22 17:39] MED LIST changes: +Acetaminophen650 M1 PO; +CIPR250 PO; +LACT PO; +PANT20 PO
[2022-11-22] MEDS ORDERED: KLOR-CON 1010 ME9 PO (18:14)
[2022-11-22] MEDS ORDERED: PANTOPRAZOLE SO2010 PO (18:14)
[2022-11-22 18:23] LABS: BASOPHILS ABSOLUTE AUTO 0.07 K/mm3 (0.00-0.23); BASOPHILS PERCENT AUTO 1 % (0-2); EOSINOPHILS PERCENT AUTO 1 % (0-6); Hemoglobin 18.4 g/dL (13.5-17.5); IMMATURE GRAN ABSOLUTE AUTO 0.04 K/mm3 (0.00-0.10); IMMATURE GRAN PERCENT AUTO 0 % (0-1); LYMPHOCYTES ABSOLUTE AUTO 2.01 K/mm3 (0.84-5.20); LYMPHOCYTES PERCENT AUTO 16 % (21-46); MONOCYTES ABSOLUTE AUTO 0.79 K/mm3 (0.16-1.47); MONOCYTES PERCENT AUTO 6 % (4-13); Mean Corpuscular HGB 30.6 pg (26.0-34.0); Mean Corpuscular HGB Conc 32.9 g/dL (31.5-36.5); Mean Corpuscular Volume 93 fL (80-100); Mean Platelet Volume 10.3 fL (9.1-12.4); NEUTROPHILS PERCENT AUTO 76 % (41-73); Platelet Count 197 K/mm3 (150-400); RDW Standard Deviation 51.4 fL (35.1-46.3); Red Blood Cell Count 6.02 M/mm3 (4.30-5.90); White Blood Cell Count 12.31 K/mm3 (4.00-11.30)
[2022-11-22 19:00] LABS: Bilirubin, Total 0.5 mg/dL (0.1-1.0); Calcium, Blood 9.8 mg/dL (8.5-10.1); Creatinine, Blood 2.81 mg/dL (0.60-1.20); Potassium, Blood 4.1 mmol/L (3.5-5.5)
[2022-11-22 21:17] VITALS: BP 129/86
== END 2022-11-22 21:19 | disposition home or self-care (01) ==
LOC: ER 17:39
PROVIDERS: Physician Assistant
DX: I13.0 Hypertensive heart and chronic kidney disease with heart failure and stage 1 through stage 4 chronic kidney disease, or unspecified chronic kidney disease (principal); I50.9 Heart failure, unspecified; N18.9 Chronic kidney disease, unspecified; E86.0 Dehydration; R19.7 Diarrhea, unspecified; Z79.899 Other long term (current) drug therapy; F17.210 Nicotine dependence, cigarettes, uncomplicated
CPT/HCPCS: 36415; 71046; 80053; 83880; 84484; 85025; 93005; 93010; 96360; 99285-25; J7030

== ENCOUNTER 2023-01-31 22:20 | Emergency (ER) | payer OTHER ==
[~2023-01-31] VITALS: Ht 177.8 cm; Wt 99.8 kg
[~2023-01-31 22:20] MED LIST changes: +KLOR-CON 1010 ME9 PO; +PANTOPRAZOLE SO2010 PO; +XARELTO1 EAC1 PO
[2023-02-01 00:06] LABS: BASOPHILS ABSOLUTE AUTO 0.04 K/mm3 (0.00-0.23); BASOPHILS PERCENT AUTO 1 % (0-2); EOSINOPHILS ABSOLUTE AUTO 0.18 K/mm3 (0.00-0.68); EOSINOPHILS PERCENT AUTO 2 % (0-6); Hematocrit 52.2 % (37.0-53.0); Hemoglobin 17.2 g/dL (13.5-17.5); IMMATURE GRAN ABSOLUTE AUTO 0.03 K/mm3 (0.00-0.10); IMMATURE GRAN PERCENT AUTO 0 % (0-1); LYMPHOCYTES ABSOLUTE AUTO 1.15 K/mm3 (0.84-5.20); LYMPHOCYTES PERCENT AUTO 13 % (21-46); MONOCYTES ABSOLUTE AUTO 0.72 K/mm3 (0.16-1.47); MONOCYTES PERCENT AUTO 8 % (4-13); Mean Corpuscular Volume 94 fL (80-100); Mean Platelet Volume 10.3 fL (9.1-12.4); NEUTROPHILS ABSOLUTE AUTO 6.46 K/mm3 (1.96-9.15); NEUTROPHILS PERCENT AUTO 75 % (41-73); Platelet Count 171 K/mm3 (150-400); RDW Coefficient Variation 13.9 % (11.7-14.2); RDW Standard Deviation 48.8 fL (35.1-46.3); Red Blood Cell Count 5.55 M/mm3 (4.30-5.90); White Blood Cell Count 8.58 K/mm3 (4.00-11.30)
[2023-02-01 00:24] LABS: Albumin, Blood 3.3 g/dL (3.4-5.0); Albumin/Globulin Ratio 0.9 (0.8-1.8); Bilirubin, Total 0.4 mg/dL (0.1-1.0); Bun/Creatinine Ratio 10.4 (12.0-20.0); Calcium, Blood 8.7 mg/dL (8.5-10.1); Creatinine, Blood 2.59 mg/dL (0.60-1.20); Globulin, Blood 3.7 g/dL (2.2-4.0); Potassium, Blood 4.7 mmol/L (3.5-5.5)
[2023-02-01 02:30] VITALS: BP 97/51
== END 2023-02-01 03:06 | disposition home or self-care (01) ==
LOC: ER 22:20
PROVIDERS: Student in an Organized Health Care Education/Training Program
DX: E86.0 Dehydration (principal); K52.9 Noninfective gastroenteritis and colitis, unspecified; I13.0 Hypertensive heart and chronic kidney disease with heart failure and stage 1 through stage 4 chronic kidney disease, or unspecified chronic kidney disease; N18.9 Chronic kidney disease, unspecified; I50.9 Heart failure, unspecified; F17.210 Nicotine dependence, cigarettes, uncomplicated; Z86.711 Personal history of pulmonary embolism; Z86.718 Personal history of other venous thrombosis and embolism; Z85.72 Personal history of non-Hodgkin lymphomas; Z79.01 Long term (current) use of anticoagulants; Z79.899 Other long term (current) drug therapy
CPT/HCPCS: 80053; 83690; 85025; 93005; 93010; 96361; 96374; 99284-25; A9270; J1885; J7030

== ENCOUNTER → 2023-02-08 | Outpatient (CLI) | payer OTHER ==
[2023-02-08 16:10] LABS: Adenovirus F 40/41 Not Detected (NOT DETECT); Astrovirus Not Detected (NOT DETECT); Campylobacter Sp Not Detected (NOT DETECT); Cryptosporidium Not Detected (NOT DETECT); Cyclospora Cayetanensis Not Detected (NOT DETECT); E. Coli O157 Not Detected (NOT DETECT); Entamoeba Histolytica Not Detected (NOT DETECT); Enteroaggregative E. coli-EAEC Not Detected (NOT DETECT); Enteropathogenic E. coli-EPEC Not Detected (NOT DETECT); Enterotoxigenic E. coli-ETEC Not Detected (NOT DETECT); Giardia Lamblia Not Detected (NOT DETECT); Norovirus GI/GII Not Detected (NOT DETECT); Plesiomonas Shigelloides Not Detected (NOT DETECT); Rotavirus A Not Detected (NOT DETECT); Salmonella Sp Not Detected (NOT DETECT); Sapovirus Not Detected (NOT DETECT); Shiga Toxin-prod E. coli-STEC Not Detected (NOT DETECT); Shigella/Enteroin E. coli-EIEC Not Detected (NOT DETECT); Vibrio Cholerae Not Detected (NOT DETECT); Vibrio Sp Not Detected (NOT DETECT); Yersinia Enterocolitica Not Detected (NOT DETECT)
[2023-02-09 11:04] LABS: Stool Occult Bld Immuno 1 Positive (NEGATIVE)
== END ==
LOC: LAB SHORT 11:53 → LAB 11:53
PROVIDERS: Nurse Practitioner Family
DX: R19.7 Diarrhea, unspecified (principal)
CPT/HCPCS: 82274; 87507

== ENCOUNTER 2023-09-13 16:03 | Emergency (ER) | payer OTHER ==
[~2023-09-13] VITALS: Ht 190.5 cm; Wt 113.4 kg
[2023-09-13] MEDS ORDERED: FentaNYL Citrate 50 MCG/ML 2 ML Injection ONE (16:11)
[2023-09-13] MEDS ORDERED: Aspirin 325 MG Tab PO ONE (16:20)
[2023-09-13] MEDS ORDERED: FentaNYL Citrate 50 MCG/ML 2 ML Injection IV ONE (16:20)
[2023-09-13] MEDS ORDERED: HYDROmorphone HCl/Pf 1MG SYR IV ONE (16:25)
[2023-09-13 16:31] LABS: BASOPHILS ABSOLUTE AUTO 0.07 K/mm3 (0.00-0.23); BASOPHILS PERCENT AUTO 1 % (0-2); EOSINOPHILS ABSOLUTE AUTO 0.12 K/mm3 (0.00-0.68); EOSINOPHILS PERCENT AUTO 2 % (0-6); Hematocrit 52.3 % (37.0-53.0); Hemoglobin 17.3 g/dL (13.5-17.5); IMMATURE GRAN ABSOLUTE AUTO 0.02 K/mm3 (0.00-0.10); IMMATURE GRAN PERCENT AUTO 0 % (0-1); LYMPHOCYTES ABSOLUTE AUTO 2.44 K/mm3 (0.84-5.20); LYMPHOCYTES PERCENT AUTO 31 % (21-46); MONOCYTES ABSOLUTE AUTO 0.76 K/mm3 (0.16-1.47); MONOCYTES PERCENT AUTO 10 % (4-13); Mean Corpuscular HGB 30.2 pg (26.0-34.0); Mean Corpuscular HGB Conc 33.1 g/dL (31.5-36.5); Mean Corpuscular Volume 91 fL (80-100); Mean Platelet Volume 10.8 fL (9.1-12.4); NEUTROPHILS ABSOLUTE AUTO 4.43 K/mm3 (1.96-9.15); NEUTROPHILS PERCENT AUTO 57 % (41-73); Platelet Count 181 K/mm3 (150-400); RDW Coefficient Variation 14.2 % (11.7-14.2); RDW Standard Deviation 48.1 fL (35.1-46.3); Red Blood Cell Count 5.72 M/mm3 (4.30-5.90); White Blood Cell Count 7.84 K/mm3 (4.00-11.30)
[2023-09-13 16:35] LABS: Calcium, Ionized (POC) 1.09 mmol/L (1.10-1.46); Chloride (POC) 101 mmol/L (98-108); Creatinine (POC) 2.5 mg/dL (0.8-1.3); Glucose (ISTAT POC) 156 mg/dL (70-99); Hemoglobin (POC) 17.7 g/dL (13.5-17.5); Sodium (POC) 139 mmol/L (135-148); Total CO2 (POC) 26 mmol/L (21-32)
[2023-09-13] MEDS ORDERED: propofoL 0 ML IV ONE (16:54)
[2023-09-13 17:01] LABS: Albumin, Blood 3.3 g/dL (3.4-5.0); Albumin/Globulin Ratio 0.9 (0.8-1.8); Bilirubin, Direct 0.3 mg/dL (0.0-0.3); Bilirubin, Indirect 0.7 mg/dL (0.1-0.7); Bun/Creatinine Ratio 12.2 (12.0-20.0); Calcium, Blood 9.1 mg/dL (8.5-10.1); Creatinine, Blood 2.21 mg/dL (0.60-1.20); Globulin, Blood 3.5 g/dL (2.2-4.0); Magnesium, Blood 2.5 mg/dL (1.6-2.4); Potassium, Blood 4.2 mmol/L (3.5-5.5); Total Protein, Blood 6.8 g/dL (6.4-8.2)
[2023-09-13 17:15] VITALS: BP 92/55
--- NOTE | 2023-09-13 17:58 | NUR ---
"SPIRITUAL CARE | CODE BLUE | PILAR 17:28 Pt. coded in X-Ray room. Pt. was brought back to his room in ED. After 45+ minutes of compressions and support TOD was called at 17;28. No family members listed on his face sheet."
[2023-09-13] MEDS ORDERED: Amiodarone HCl 50 MG / ML 3 ML Amp IV ONE (19:16)
[2023-09-13] MEDS ORDERED: Calcium Chloride 10% 10 ML SYR IV ONE (19:16)
[2023-09-13] MEDS ORDERED: EPINEPhrine HCl 0.1 MG/ML 10ML SYR IV ONE (19:16)
[2023-09-13] MEDS ORDERED: Sodium Bicarb 8.4% 50 mEq Syringe IV ONE (19:16)
[2023-09-13] MEDS ORDERED: Magnesium Sulfate 500 MG / ML 2ML Vial IV ONE (19:16)
[2023-09-13] MEDS ORDERED: Rocuronium Bromide 10 MG/ML 5ML Injection IV ONE (19:16)
[2023-09-13] MEDS ORDERED: Etomidate 2MG / ML 10ML Vial IV ONE (19:16)
== END 2023-09-13 20:00 ==
LOC: ER 16:03
PROVIDERS: Student in an Organized Health Care Education/Training Program
DX: I46.9 Cardiac arrest, cause unspecified (principal); I49.01 Ventricular fibrillation; I47.20 Ventricular tachycardia, unspecified; I42.9 Cardiomyopathy, unspecified; I13.0 Hypertensive heart and chronic kidney disease with heart failure and stage 1 through stage 4 chronic kidney disease, or unspecified chronic kidney disease; I50.20 Unspecified systolic (congestive) heart failure; N18.9 Chronic kidney disease, unspecified; F17.210 Nicotine dependence, cigarettes, uncomplicated; Z91.148 Patient's other noncompliance with medication regimen for other reason; Z95.0 Presence of cardiac pacemaker; Z79.899 Other long term (current) drug therapy; Z79.01 Long term (current) use of anticoagulants
CPT/HCPCS: 31500; 71275; 80047; 80048; 80076; 83690; 83735; 84484; 85014; 85025; 92950; 93005; 93010; 96374-59; 96375; 99285-25; A9270; J0171; J0282; J1170; J2704; J3010; J3475; J7040; J7060; Q9967